=== PATIENT | female | born 1960 | race Caucasian/White ===

== ENCOUNTER 2024-08-05 13:09 | Day surgery (SDC) | payer OTHER ==
[~2024-08-05] VITALS: Ht 157.5 cm; Wt 69.6 kg
[~2024-08-05 13:09] MED LIST: ALDACTONE100 MG PO; Atropine Sulfate 0.1 MG/ML 10ML SYR ONE; CENTRUM SILVER1 EAC2; ERGO50000; FURO40 PO; Glycopyrrolate 0.2 MG/ML 1MLVIAL ONE; Keflex500 MG PO; Lactated Ringer's 1,000 ML IV ONE; Lidocaine 2% 5 ML SDV ONE; Lidocaine HCl/Pf 1% 5 ML VIAL ONE; Methylene Blue 1% 100 MG/10 ML VIAL ONE; Ondansetron HCl 2 MG / ML 2ML Vial ONE; PANT40 PO; POTA10T PO; TRAM50 PO; ePHEDrine Sulfate 50 MG/ML 1ML Injection ONE
[2024-08-05] MEDS ORDERED: propofoL 50 ML IV ONE (14:44)
[2024-08-05] MEDS ORDERED: Lactated Ringer's 1,000 ML IV ONE (14:45)
[2024-08-05] MEDS ORDERED: Benzocaine Oral Spray 0.5ML UD ONE (14:47)
--- NOTE | 2024-08-05 15:14 | NUR ---
08/05/24 1514 Rachel Madison REPORT GIVEN TO RN ROMERO HERNANDEZ TO ASSUME CARE OF PT FOR PROCEDURE AND RECOVERY
[2024-08-05] MEDS ORDERED: Glycopyrrolate 0.2 MG/ML 1MLVIAL ONE (15:15)
[2024-08-05 16:02] VITALS: BP 132/90
== END 2024-08-05 16:01 | disposition home or self-care (01) ==
LOC: ORSCSDS 13:09
PROVIDERS: Internal Medicine Gastroenterology
PROC: 0DBK8ZX Excision of Ascending Colon, Via Natural or Artificial Opening Endoscopic, Diagnostic (ICD-10-PCS; principal; 2024-08-05 15:00)
PROC: 0DJ08ZZ Inspection of Upper Intestinal Tract, Via Natural or Artificial Opening Endoscopic (ICD-10-PCS; principal; 2024-08-05 15:00)
DX: K74.60 Unspecified cirrhosis of liver (principal); B19.20 Unspecified viral hepatitis C without hepatic coma; I85.10 Secondary esophageal varices without bleeding; Z13.810 Encounter for screening for upper gastrointestinal disorder; Z12.11 Encounter for screening for malignant neoplasm of colon; D12.2 Benign neoplasm of ascending colon; K76.6 Portal hypertension; K31.89 Other diseases of stomach and duodenum; F17.210 Nicotine dependence, cigarettes, uncomplicated; K21.9 Gastro-esophageal reflux disease without esophagitis; Z79.899 Other long term (current) drug therapy
CPT/HCPCS: 88305; A9270; J0461; J2003; J2405; J2704; J7120; Q9968